=== PATIENT | male | born 1955 | race Caucasian/White ===

== ENCOUNTER → 2018-07-12 | Outpatient (CLI) | payer OTHER, MEDICARE ==
[~2018-07-12] MED LIST: IOPAMIDOL (ISOVUE 370) 100 ML BTL IV ONE
== END ==
LOC: FIMAGING 07:31
PROVIDERS: ATTEND Internal Medicine Pulmonary Disease
DX: R05 Cough (principal); R06.09 Other forms of dyspnea; K80.20 Calculus of gallbladder without cholecystitis without obstruction; Z87.81 Personal history of (healed) traumatic fracture
CPT/HCPCS: 71275; Q9967; 82565-PO